=== PATIENT | female | born 1995 | race African-American/Black ===

== ENCOUNTER 2016-12-12 10:27 | Emergency (ER) | payer OTHER ==
[~2016-12-12] VITALS: Ht 172.7 cm; Wt 104.3 kg
[~2016-12-12 10:27] MED LIST: ACET-654 PO; BENT20TA PO; CARA1TAB2 PO; FAMO20TA PO; HYDR-3713 PO; IBUP80TA PO; LEXA1TAB PO; MELA0.02 PO; NEXI20CA PO; TIZA4CAP3 PO; VITAD1000T PO; ZOFR20TA PO; ZOLO50TA PO
[2016-12-12] MEDS ORDERED: VITA50TA43 PO (10:41)
[2016-12-12] MEDS ORDERED: SLEETAB2 PO (10:41)
[2016-12-12] MEDS ORDERED: ACETAMINOPHEN 325 MG TAB PO ONE (11:45)
[2016-12-12 12:24] LABS: CONTROL LINE HCG INT CTR LINE PRESENT
[2016-12-12 12:31] LABS: ANION GAP 5 MEQ/L (8-16); BASO % 0.6 % (0.0-1.0); BLOOD UREA NITROGEN 9 MG/DL (7-18); CALCIUM LEVEL 8.9 MG/DL (8.5-10.1); CARBON DIOXIDE LEVEL 27 MEQ/L (21-32); CHLORIDE LEVEL 105 MEQ/L (98-107); CREATININE FOR GFR 0.91 MG/DL (0.55-1.02); EOS # 0.1 K/mm3 (0.0-0.50); EOS % 1.2 % (0.0-3.0); GLOMERULAR FILTRATION RATE > 60.0 (>60); GLUCOSE, FASTING 92 MG/DL (70-105); LARGE UNSTAINED CELL # 0.1 K/mm3 (0.0-0.4); LARGE UNSTAINED CELL % 1.6 % (0.0-4.0); LYMPH # 3.3 K/mm3 (1.5-6.5); LYMPH % 39.6 % (24.0-44.0); MEAN CORPUSCULAR HEMOGLOBIN 28.9 pg (27.0-33.0); MEAN CORPUSCULAR HGB CONC 33.1 g/dl (32.0-36.5); MEAN CORPUSCULAR VOLUME 87.5 fl (80.0-96.0); MONO # 0.3 K/mm3 (0.0-0.8); MONO % 3.1 % (0.0-5.0); NEUTROPHILS # 4.4 K/mm3 (1.8-7.7); NEUTROPHILS % 53.9 % (36.0-66.0); PLATELET COUNT, AUTOMATED 328 k/mm3 (150-450); POTASSIUM SERUM 4.5 MEQ/L (3.5-5.1); RED CELL DISTRIBUTION WIDTH 12.8 % (11.5-14.5); SODIUM LEVEL 137 MEQ/L (136-145); WHITE BLOOD COUNT 8.1 K/mm3 (4.0-10.0)
[2016-12-12 12:39] LABS: CALCIUM OXALATE CRYSTALS SMALL
--- NOTE | 2016-12-12 13:10 | REP ---
PELVIC ULTRASOUND: Real-time sonographic evaluation of the pelvis performed utilizing transabdominal and endovaginal technique. Urinary bladder is collapsed. Uterus measures 7.7 x 3.2 x 4.1 cm. Endometrial thickness is 7 mm. There is no endometrial fluid collection. Ovaries are normal in size and echotexture, right ovary measuring 4.0 x 3.2 x 3.4 cm and left ovary 3.3 x 2.8 x 3.1 cm. There is no adnexal mass. There is no evidence of ovarian torsion, with blood flow seen in each ovary with duplex Doppler evaluation. No free fluid is seen. There is no adnexal mass. IMPRESSION: Negative pelvic ultrasound as discussed in detail above. Signed by Pernell Casillas MD 12/12/2016 05:25 P
[2016-12-12] MEDS ORDERED: IBUP80TA PO (13:25)
[2016-12-12 13:37] VITALS: BP 156/75
== END 2016-12-12 13:39 | disposition home or self-care (01) ==
LOC: M ED 11:56
DX: R10.31 Right lower quadrant pain (principal)